=== PATIENT | male | born 1970 | race Caucasian/White ===

== ENCOUNTER 2024-03-03 09:32 | Inpatient (IN) | payer OTHER ==
[2024-03-03 10:04] VITALS: BMI 17.4
[2024-03-03] MEDS ORDERED: BISMUTH SUBSALICYLATE 262 MG/15 ML BTL PO PRN (10:30)
[2024-03-03] MEDS ORDERED: MAG HYDROX/AL HYDROX/SIMETH 30 ML UNIT-DOSE CUP PO PRN (10:30)
[2024-03-03] MEDS ORDERED: NALOXONE (NARCAN) HCL 4 MG/0.1 ML SPRAY NS PRN (10:30)
[2024-03-03] MEDS ORDERED: guaiFENesin 600 MG TABLET.ER (FP) PO PRN (10:30)
[2024-03-03] MEDS ORDERED: NICOTINE POLACRILEX 2 MG GUM BUC PRN (10:30)
[2024-03-03] MEDS ORDERED: BENZONATATE 200 MG CAPSULE PO PRN (10:30)
[2024-03-03] MEDS ORDERED: POLYETHYLENE GLYCOL (HEALTHYLAX) 3350 17 GM PACKET PO PRN (10:30)
[2024-03-03] MEDS ORDERED: P-EPHED 60MG/TRIPROLIDI 2.5MG TABLET PO PRN (10:30)
[2024-03-03] MEDS ORDERED: IBUPROFEN 400 MG TABLET (FP) PO PRN (10:30)
[2024-03-03] MEDS ORDERED: LOPERAMIDE HCL 2 MG CAPSULE PO PRN (10:30)
[2024-03-03] MEDS ORDERED: NICOTINE POLACRILEX 2 MG LOZENGE BC PRN (10:30)
[2024-03-03] MEDS ORDERED: DICYCLOMINE HCL 10 MG CAPSULE PO PRN (10:30)
[2024-03-03] MEDS ORDERED: ONDANSETRON *ODT* 4 MG TABLET SL PRN (10:30)
[2024-03-03] MEDS ORDERED: BENZOCAINE/MENTHOL (CHLORASEPTIC ) LOZENGE MM PRN (10:30)
[2024-03-03] MEDS ORDERED: MAGNESIUM HYDROX 2400MG/30ML ORAL SUSPENSION 30 ML CUP PO PRN (10:30)
[2024-03-03] MEDS ORDERED: cloNIDine HCL 0.1 MG TABLET PO PRN (10:32)
[2024-03-03] MEDS ORDERED: ALBUTEROL SO4 HFA INHALER IH PRN (10:59)
[2024-03-03] MEDS ORDERED: methaDONE HCL 10 MG TABLET (FOR DETOX USE ONLY) ONE (11:23)
[2024-03-03] MEDS: methaDONE HCL 10 MG TABLET (FOR DETOX USE ONLY) PO ONE (11:30)
[2024-03-03] MEDS: BACITRACIN 0.9 GM PACKET TP SCH (14:08)
[2024-03-03] MEDS: CARBAMIDE PEROXIDE 6.5% OTIC 15 ML BOTTLE AD SCH (14:08)
[2024-03-03] MEDS: SULFAMETHOXAZOLE/TRIMETHOPRIM 800MG/160MG D.S. TABLET PO SCH (14:08)
[2024-03-03] MEDS: IBUPROFEN 600 MG TABLET (FP) PO PRN (19:51)
[2024-03-03] MEDS ORDERED: BENZOCAINE 20 % GEL TUBE MM PRN (20:00)
[2024-03-03] MEDS: ACETAMINOPHEN 325 MG TABLET (FP) PO PRN (20:02)
[2024-03-03] MEDS: METHOCARBAMOL 500 MG TABLET PO PRN (20:02)
[2024-03-03] MEDS: LIDOCAINE VISCOUS 2% ORAL/TOP 15 ML UNIT-DOSE CUP MM PRN (20:07)
[2024-03-03] MEDS ORDERED: MELATONIN 5 MG TABLETS PO SCH (22:00)
[2024-03-03] MEDS: THIAMINE 100 MG TABLET PO SCH (22:15)
[2024-03-03] MEDS: SUVOREXANT 10 MG TABLET PO PRN (22:17)
[2024-03-04] MEDS: BICTEGRAV/EMTRICIT/TENOFOV (BIKTARVY) 50-200-25 MG TABLET PO SCH (08:28)
[2024-03-04] MEDS: methaDONE HCL 10 MG TABLET PO ONE (09:58)
[2024-03-04] MEDS: cloNIDine HCL 0.1 MG TABLET PO SCH (09:59)
[2024-03-04] MEDS: PRENATAL VITAMINS W/ FOLIC ACID TABLET (FP) PO SCH (09:59)
[2024-03-04] MEDS: CHOLECALCIFEROL (VIT D3) 1,000 UNIT (25 MCG) TABLET PO SCH (10:01)
[2024-03-04] MEDS ORDERED: methaDONE HCL 10 MG TABLET PO PRN (11:13)
[2024-03-05 08:53] VITALS: RESP 16
[2024-03-05] MEDS: methaDONE 40 MG, methaDONE 10 MG PO ONE (09:39)
[2024-03-05] MEDS ORDERED: methaDONE HCL 10 MG TABLET (FOR DETOX USE ONLY) PO ONE (10:00)
[2024-03-05 12:39] VITALS: BP 115/64; PULSE 55; TEMP 97.9
[2024-03-05] MEDS: CLINDAMYCIN PHOSPHATE 1% TOPICAL GEL 30 GM TUBE TP SCH (13:17)
[2024-03-06] MEDS ORDERED: cloNIDine HCL 0.1 MG TABLET PO PRN
[2024-03-06] MEDS ORDERED: methaDONE 40 MG, methaDONE 20 MG PO ONE (10:00)
[2024-03-07] MEDS ORDERED: methaDONE 40 MG, methaDONE 30 MG PO ONE (10:00)
[2024-03-07] MEDS ORDERED: methaDONE HCL 10 MG TABLET (FOR DETOX USE ONLY) PO ONE (10:00)
[2024-03-08] MEDS ORDERED: methaDONE HCL 40 MG DISPERSABLE TABLET PO ONE (10:00)
[2024-03-09] MEDS ORDERED: methaDONE 80 MG, methaDONE 10 MG PO ONE (10:00)
== END 2024-03-05 23:42 | disposition short-term general hospital (02) | DRG 773 ==
LOC: YASAS 09:32 → Y6N 11:14
PROVIDERS: ADMIT Allergy & Immunology; ATTEND Student in an Organized Health Care Education/Training Program
PROC: HZ2ZZZZ Detoxification Services for Substance Abuse Treatment (ICD-10-PCS; principal; 2024-03-03)
DX: F11.23 Opioid dependence with withdrawal (principal); F14.20 Cocaine dependence, uncomplicated; F12.20 Cannabis dependence, uncomplicated; F17.210 Nicotine dependence, cigarettes, uncomplicated; F19.282 Other psychoactive substance dependence with psychoactive substance-induced sleep disorder; F19.24 Other psychoactive substance dependence with psychoactive substance-induced mood disorder; Z21 Asymptomatic human immunodeficiency virus [HIV] infection status; L03.113 Cellulitis of right upper limb; L03.114 Cellulitis of left upper limb; H61.23 Impacted cerumen, bilateral; I10 Essential (primary) hypertension; Z79.899 Other long term (current) drug therapy
CPT/HCPCS: 36415; 71046-TC-FY; 80305; 80307; 86593; 86780; 87070; 87077; 87186; 87205; 93005; 93010

== ENCOUNTER 2024-03-05 14:35 | Inpatient (IN) | payer OTHER ==
[2024-03-05] MEDS ORDERED: VANCOMYCIN 1,000 MG in DEXTROSE 5%-WATER - 250 ML IVPB ONE (16:01)
[2024-03-05] MEDS ORDERED: PIPERACILLIN/TAZOB 4.5 GM 4.5 GM/100 ML BAG IVPB ONE (16:43)
[2024-03-05] MEDS ORDERED: VANCOMYCIN 1 GM PREMIX (F) 1 GM/200 ML BAG ONE (16:44)
[2024-03-05] MEDS ORDERED: VANCOMYCIN/WATER FOR INJ (PEG) 1,000 MG/200 ML BAG IVPB ONE (16:49)
[2024-03-05 17:46] LABS: BASO % 0.4 % (0-2.0); EOS % 1.9 % (0-4.5); HEMATOCRIT 29.1 % (35.4-49); HEMOGLOBIN 9.2 GM/dL (11.7-16.9); LYMPH % 16.8 % (8-40); MCH 27.1 pg (25.7-33.7); MCHC 31.5 g/dl (32.0-35.9); MEAN CELL VOLUME 86.3 fl (80-96); MEAN PLT VOLUME 6.5 fl (7.5-11.1); MONO % 7.5 % (3.8-10.2); NEUT % 73.4 % (42.8-82.8); PLATELET COUNT 386 10^3/uL (134-434); RBC 3.37 M/mm3 (4.00-5.60); RDW 16.8 % (11.9-15.9); WHITE BLOOD COUNT 8.2 K/mm3 (4.0-10.0)
[2024-03-05 18:03] LABS: POTASSIUM 4.5 mmol/L (3.5-5.1)
[2024-03-05] MEDS ORDERED: LIDOCAINE HCL/PF 1% SDV 5ML VIAL ONE (18:04)
[2024-03-05 18:05] LABS: ALBUMIN 2.6 g/dl (3.4-5.0); CALCIUM 8.8 mg/dL (8.5-10.1)
[2024-03-05 18:09] LABS: CREATININE 0.9 mg/dL (0.55-1.3)
[2024-03-05 18:10] LABS: BILIRUBIN,TOTAL 0.1 mg/dL (0.2-1); TOT PROT 6.9 g/dl (6.4-8.2)
[2024-03-05 19:00] LABS: ERYTHROCYTE SEDIMENTATION RATE 44 mm/hr (0-20)
[2024-03-05] MEDS: PIPERACILLIN/TAZOB 4.5 GM 4.5 GM in DEXTROSE 5%-WATER 100 ML IVPB ONE (19:08)
[2024-03-05] MEDS: VANCOMYCIN 1 GM PREMIX (F) 1,000 MG/200 ML BAG IVPB ONE (19:32)
[2024-03-05] MEDS: LIDOCAINE HCL 1%, 10 MG/ML (50 mL VIAL) SQ ONE (20:01)
[2024-03-05] MEDS ORDERED: ACETAMINOPHEN 325 MG TABLET (FP) ONE (21:24)
[2024-03-05] MEDS ORDERED: KETOROLAC TROMETHAMINE 15 MG/ML VIAL ONE (21:24)
[2024-03-05] MEDS: ACETAMINOPHEN 500 MG TABLET (FP) PO ONE (21:31)
[2024-03-05] MEDS: KETOROLAC TROMETHAMINE 15 MG/ML VIAL IVPUSH ONE (21:31)
[2024-03-05] MEDS ORDERED: ALBUTEROL SO4 HFA INHALER IH PRN (21:35)
[2024-03-06 06:33] LABS: BASO % 0.6 % (0-2.0); EOS % 4.6 % (0-4.5); HEMATOCRIT 30.8 % (35.4-49); HEMOGLOBIN 9.8 GM/dL (11.7-16.9); LYMPH % 21.4 % (8-40); MCH 27.3 pg (25.7-33.7); MCHC 31.8 g/dl (32.0-35.9); MEAN CELL VOLUME 85.7 fl (80-96); MEAN PLT VOLUME 6.5 fl (7.5-11.1); MONO % 8.5 % (3.8-10.2); NEUT % 64.9 % (42.8-82.8); PLATELET COUNT 372 10^3/uL (134-434); RBC 3.59 M/mm3 (4.00-5.60); RDW 16.9 % (11.9-15.9); WHITE BLOOD COUNT 5.8 K/mm3 (4.0-10.0)
[2024-03-06 06:49] LABS: POTASSIUM 4.4 mmol/L (3.5-5.1)
[2024-03-06 06:52] LABS: ALBUMIN 2.4 g/dl (3.4-5.0); BLOOD UREA NITROGEN 17.1 mg/dL (7-18); CALCIUM 8.5 mg/dL (8.5-10.1)
[2024-03-06 06:55] LABS: CREATININE 1.1 mg/dL (0.55-1.3); PHOSPHOROUS 2.8 mg/dL (2.5-4.9)
[2024-03-06 06:56] LABS: BILIRUBIN,TOTAL 0.2 mg/dL (0.2-1); TOT PROT 6.6 g/dl (6.4-8.2)
[2024-03-06] MEDS: VANCOMYCIN/WATER FOR INJ (PEG) 750 MG/150 ML BAG IVPB SCH (08:15)
[2024-03-06] MEDS: BICTEGRAV/EMTRICIT/TENOFOV (BIKTARVY) 50-200-25 MG TABLET PO SCH (08:50)
[2024-03-06] MEDS: CHOLECALCIFEROL (VIT D3) 1,000 UNIT (25 MCG) TABLET PO SCH (10:55)
[2024-03-06] MEDS: ENALAPRIL MALEATE 10 MG TABLET PO SCH (10:55)
[2024-03-06] MEDS: methaDONE 40 MG, methaDONE 10 MG PO ONE (10:55)
[2024-03-06] MEDS ORDERED: methaDONE HCL 40 MG DISPERSABLE TABLET ONE (10:56)
[2024-03-06] MEDS ORDERED: methaDONE HCL 10 MG TABLET ONE (10:56)
[2024-03-06] MEDS: ENOXAPARIN NA (PORCINE) 40 MG/0.4 ML DISP.SYRIN SQ SCH (11:20)
[2024-03-06] MEDS: ACETAMINOPHEN 1000 MG/100 ML BAG IVPB PRN (16:18)
[2024-03-06] MEDS: BENZOCAINE 20 % GEL TUBE MM PRN (16:49)
[2024-03-06] MEDS: VANCOMYCIN/WATER FOR INJ (PEG) 1,000 MG/200 ML BAG IVPB SCH (21:14)
[2024-03-07] MEDS: SUVOREXANT 10 MG TABLET PO PRN (00:50)
[2024-03-07] MEDS: methaDONE 40 MG, methaDONE 10 MG PO SCH (05:43)
[2024-03-07] MEDS ORDERED: methaDONE HCL 10 MG TABLET PO SCH (06:00)
[2024-03-07] MEDS: VANCOMYCIN 750 MG in DEXTROSE 5%-WATER - 150 ML IVPB SCH (07:31)
[2024-03-07 09:06] LABS: BASO % 0.9 % (0-2.0); EOS % 3.9 % (0-4.5); HEMATOCRIT 36.3 % (35.4-49); HEMOGLOBIN 11.6 GM/dL (11.7-16.9); LYMPH % 19.9 % (8-40); MCH 27.3 pg (25.7-33.7); MEAN CELL VOLUME 85.1 fl (80-96); MEAN PLT VOLUME 6.6 fl (7.5-11.1); NEUT % 66.3 % (42.8-82.8); PLATELET COUNT 446 10^3/uL (134-434); RBC 4.26 M/mm3 (4.00-5.60); RDW 17.1 % (11.9-15.9); WHITE BLOOD COUNT 5.6 K/mm3 (4.0-10.0)
[2024-03-07 09:27] LABS: POTASSIUM 4.7 mmol/L (3.5-5.1)
[2024-03-07 09:32] LABS: BLOOD UREA NITROGEN 14.9 mg/dL (7-18); CALCIUM 9.2 mg/dL (8.5-10.1); MAGNESIUM 2.3 mg/dL (1.8-2.4)
[2024-03-07 09:35] LABS: CREATININE 0.9 mg/dL (0.55-1.3)
[2024-03-07 09:36] LABS: BILIRUBIN,TOTAL 0.1 mg/dL (0.2-1); TOT PROT 8.1 g/dl (6.4-8.2)
[2024-03-07] MEDS: BACITRACIN ZINC 15 GM TUBE TOPICAL OINTMENT TP SCH (15:41)
[2024-03-07 23:10] VITALS: BMI 18.1
[2024-03-07] MEDS: ACETAMINOPHEN 1000 MG/100 ML BAG IVPB PRN (23:18)
[2024-03-08 07:54] LABS: BASO % 0.7 % (0-2.0); EOS % 4.7 % (0-4.5); HEMATOCRIT 31.5 % (35.4-49); HEMOGLOBIN 10.1 GM/dL (11.7-16.9); LYMPH % 23.4 % (8-40); MCH 27.3 pg (25.7-33.7); MCHC 32.1 g/dl (32.0-35.9); MEAN PLT VOLUME 6.7 fl (7.5-11.1); MONO % 11.6 % (3.8-10.2); NEUT % 59.6 % (42.8-82.8); PLATELET COUNT 378 10^3/uL (134-434); RDW 17.5 % (11.9-15.9); WHITE BLOOD COUNT 5.6 K/mm3 (4.0-10.0)
[2024-03-08 08:16] LABS: POTASSIUM 4.5 mmol/L (3.5-5.1)
[2024-03-08 08:20] LABS: ALBUMIN 2.7 g/dl (3.4-5.0); BLOOD UREA NITROGEN 23.4 mg/dL (7-18); CALCIUM 8.9 mg/dL (8.5-10.1)
[2024-03-08 08:23] LABS: CREATININE 0.9 mg/dL (0.55-1.3)
[2024-03-08 08:25] LABS: BILIRUBIN,TOTAL 0.2 mg/dL (0.2-1); TOT PROT 7.4 g/dl (6.4-8.2)
[2024-03-08] MEDS: MAG HYDROX/AL HYDROX/SIMETH 30 ML UNIT-DOSE CUP PO ONE (10:14)
[2024-03-08] MEDS: MULTIVITAMINS (DAILY MVI) TABLET (FP) PO SCH (10:15)
[2024-03-08] MEDS: FAMOTIDINE 20 MG TABLET PO SCH (10:15)
[2024-03-09 08:21] LABS: BASO % 0.9 % (0-2.0); EOS % 4.9 % (0-4.5); HEMATOCRIT 34.4 % (35.4-49); HEMOGLOBIN 11.3 GM/dL (11.7-16.9); LYMPH % 18.8 % (8-40); MCH 27.8 pg (25.7-33.7); MCHC 32.8 g/dl (32.0-35.9); MEAN CELL VOLUME 84.6 fl (80-96); MEAN PLT VOLUME 6.5 fl (7.5-11.1); MONO % 8.4 % (3.8-10.2); PLATELET COUNT 385 10^3/uL (134-434); RBC 4.07 M/mm3 (4.00-5.60); RDW 16.6 % (11.9-15.9); WHITE BLOOD COUNT 6.2 K/mm3 (4.0-10.0)
[2024-03-09 08:35] LABS: POTASSIUM 4.7 mmol/L (3.5-5.1)
[2024-03-09 08:41] LABS: CALCIUM 9.2 mg/dL (8.5-10.1)
[2024-03-09 08:42] LABS: ALBUMIN 2.9 g/dl (3.4-5.0); BLOOD UREA NITROGEN 23.8 mg/dL (7-18); MAGNESIUM 2.1 mg/dL (1.8-2.4)
[2024-03-09 08:45] LABS: CREATININE 0.9 mg/dL (0.55-1.3)
[2024-03-09 08:46] LABS: TOT PROT 7.5 g/dl (6.4-8.2)
[2024-03-09 08:48] LABS: BILIRUBIN,TOTAL 0.2 mg/dL (0.2-1)
[2024-03-09] MEDS: SULFAMETHOXAZOLE/TRIMETHOPRIM 800MG/160MG D.S. TABLET PO SCH (10:35)
[2024-03-09] MEDS: diphenhydrAMINE HCL 25 MG CAPSULE (FP) PO ONE (11:50)
[2024-03-09 16:07] VITALS: BP 118/70; RESP 18; TEMP 98.6
[2024-03-09 16:16] VITALS: PULSE 59
== END 2024-03-09 18:30 | disposition other institution (70) | DRG 383 ==
LOC: JER 14:35 → JERBED 19:38 → J6S 03-06 12:34 → OBSVTOIN 03-07 10:14
PROVIDERS: ADMIT Student in an Organized Health Care Education/Training Program; ATTEND Nurse Practitioner Family
PROC: 0H9DXZZ Drainage of Right Lower Arm Skin, External Approach (ICD-10-PCS; principal; 2024-03-05)
DX: L02.413 Cutaneous abscess of right upper limb (principal); I10 Essential (primary) hypertension; D64.9 Anemia, unspecified; Z21 Asymptomatic human immunodeficiency virus [HIV] infection status; F11.20 Opioid dependence, uncomplicated; L03.114 Cellulitis of left upper limb; F14.10 Cocaine abuse, uncomplicated; L98.498 Non-pressure chronic ulcer of skin of other sites with other specified severity; J45.909 Unspecified asthma, uncomplicated; F19.10 Other psychoactive substance abuse, uncomplicated; A53.0 Latent syphilis, unspecified as early or late; L03.113 Cellulitis of right upper limb; R74.8 Abnormal levels of other serum enzymes; B95.62 Methicillin resistant Staphylococcus aureus infection as the cause of diseases classified elsewhere
CPT/HCPCS: 36415; 76705-TC; 80053; 82728; 83540; 83550; 83735; 84100; 84466; 85025; 85651; 86140; 86359; 86360; 87040; 87070; 87186; 87205; 99285-25; G0378; G0480; J0131

== ENCOUNTER 2024-03-09 18:38 | Inpatient (IN) | payer OTHER ==
[2024-03-09 18:53] VITALS: BMI 17.7
[2024-03-09] MEDS ORDERED: ALBUTEROL SO4 HFA INHALER IH PRN (19:11)
[2024-03-09] MEDS: SULFAMETHOXAZOLE/TRIMETHOPRIM 800MG/160MG D.S. TABLET PO SCH (21:40)
[2024-03-09] MEDS: BACITRACIN 0.9 GM PACKET TP SCH (21:40)
[2024-03-09] MEDS ORDERED: BENZONATATE 200 MG CAPSULE PO PRN (22:25)
[2024-03-09] MEDS ORDERED: NICOTINE POLACRILEX 2 MG GUM BUC PRN (22:25)
[2024-03-09] MEDS ORDERED: P-EPHED 60MG/TRIPROLIDI 2.5MG TABLET PO PRN (22:25)
[2024-03-09] MEDS ORDERED: IBUPROFEN 400 MG TABLET (FP) PO PRN (22:25)
[2024-03-09] MEDS ORDERED: NALOXONE HCL 0.4 MG/ML VIAL IVPUSH PRN (22:25)
[2024-03-09] MEDS ORDERED: LOPERAMIDE HCL 2 MG CAPSULE PO PRN (22:25)
[2024-03-09] MEDS ORDERED: NICOTINE POLACRILEX 2 MG LOZENGE BC PRN (22:25)
[2024-03-09] MEDS ORDERED: MAGNESIUM HYDROX 2400MG/30ML ORAL SUSPENSION 30 ML CUP PO PRN (22:25)
[2024-03-09] MEDS ORDERED: guaiFENesin 600 MG TABLET.ER (FP) PO PRN (22:25)
[2024-03-09] MEDS ORDERED: NALOXONE (NARCAN) HCL 4 MG/0.1 ML SPRAY NS PRN (22:25)
[2024-03-09] MEDS ORDERED: BENZOCAINE/MENTHOL (CHLORASEPTIC ) LOZENGE MM PRN (22:25)
[2024-03-09] MEDS ORDERED: POLYETHYLENE GLYCOL (HEALTHYLAX) 3350 17 GM PACKET PO PRN (22:25)
[2024-03-09] MEDS: MELATONIN 5 MG TABLETS PO SCH (22:31)
[2024-03-10] MEDS: BICTEGRAV/EMTRICIT/TENOFOV (BIKTARVY) 50-200-25 MG TABLET PO SCH (07:50)
[2024-03-10] MEDS: PRENATAL VITAMINS W/ FOLIC ACID TABLET (FP) PO SCH (09:47)
[2024-03-10] MEDS: CHOLECALCIFEROL (VIT D3) 1,000 UNIT (25 MCG) TABLET PO SCH (09:48)
[2024-03-10] MEDS: methaDONE 40 MG, methaDONE 10 MG PO ONE (10:59)
[2024-03-10] MEDS: methaDONE HCL 10 MG TABLET PO SCH (11:45)
[2024-03-10] MEDS: IBUPROFEN 600 MG TABLET (FP) PO PRN (14:32)
[2024-03-10] MEDS: ACETAMINOPHEN 325 MG TABLET (FP) PO PRN (21:03)
[2024-03-10] MEDS: THIAMINE 100 MG TABLET PO SCH (21:03)
[2024-03-11] MEDS: methaDONE 40 MG, methaDONE 10 MG PO SCH (06:19)
[2024-03-11] MEDS: AMOX TR/POT CLAV 500MG/125MG TABLETS (FP) PO SCH (18:16)
[2024-03-12] MEDS: BICTEGRAV/EMTRICIT/TENOFOV (BIKTARVY) 50-200-25 MG TABLET PO SCH (06:12)
[2024-03-12] MEDS: hydrOXYzine PAMOATE 25 MG CAPSULE (FP) PO PRN (21:23)
[2024-03-14] MEDS: MAG HYDROX/AL HYDROX/SIMETH 30 ML UNIT-DOSE CUP PO PRN (02:14)
[2024-03-14 07:05] VITALS: RESP 16
[2024-03-15] MEDS: BENZOCAINE 20 % GEL TUBE MM PRN (13:54)
[2024-03-15] MEDS: METHOCARBAMOL 500 MG TABLET PO PRN (21:13)
[2024-03-17 06:45] VITALS: BP 122/89; PULSE 70; TEMP 97.6
[2024-03-17] MEDS: NALOXONE (NYS OPIOID OVERDOSE PROGRAM) 4 MG/0.1 ML SPRAY NS SCH (10:50)
== END 2024-03-17 11:13 | disposition home or self-care (01) | DRG 772 ==
LOC: YASAS 18:38 → Y5N 20:00
PROVIDERS: ADMIT Allergy & Immunology; ATTEND Psychiatry & Neurology Pain Medicine
PROC: HZ42ZZZ Group Counseling for Substance Abuse Treatment, Cognitive-Behavioral (ICD-10-PCS; principal; 2024-03-09)
DX: F11.20 Opioid dependence, uncomplicated (principal); F14.20 Cocaine dependence, uncomplicated; F17.210 Nicotine dependence, cigarettes, uncomplicated; F31.9 Bipolar disorder, unspecified; F19.282 Other psychoactive substance dependence with psychoactive substance-induced sleep disorder; F19.24 Other psychoactive substance dependence with psychoactive substance-induced mood disorder; F41.9 Anxiety disorder, unspecified; Z21 Asymptomatic human immunodeficiency virus [HIV] infection status; I10 Essential (primary) hypertension; K02.9 Dental caries, unspecified; L03.113 Cellulitis of right upper limb; L03.114 Cellulitis of left upper limb
CPT/HCPCS: 80305; 80307; 87811